=== PATIENT | female | born 1970 | race Caucasian/White ===

== ENCOUNTER 2017-10-06 13:38 | Emergency (ER) | payer MEDICAID ==
[2017-10-06] MEDS: SOD CHLORIDE 0.9% 1,000 ML IV (14:33)
[2017-10-06] MEDS: LORAZEPAM 2 MG INJ IV (14:33)
[2017-10-06 14:34] LABS: ADD MAN DIFF? NO
[2017-10-06 14:38] LABS: ABNORMAL IP MESSAGE 1; BASOPHILS % 0.1 % (0.0-2.0); HEMATOCRIT 23.6 % (37.0-47.0); HEMOGLOBIN 7.5 g/dl (12.0-16.0); LYMPHOCYTES # 0.4 10^3/ul (0.8-2.9); LYMPHOCYTES % 5.6 % (15.0-51.0); MEAN CORPUSCULAR HEMOGLOBIN 26.9 pg (29.0-33.0); MEAN CORPUSCULAR HGB CONC 31.8 g/dl (32.0-37.0); MEAN CORPUSCULAR VOLUME 84.6 fl (82.0-101.0); MEAN PLATELET VOLUME 9.5 fl (7.4-10.4); MONOCYTE # 0.6 10^3/ul (0.3-0.9); MONOCYTES % 8.4 % (0.0-11.0); NEUTROPHIL # 6.1 10^3/ul (1.6-7.5); NEUTROPHILS % 85.2 % (39.0-77.0); NUCLEATED RED BLOOD CELLS% 0.3 /100WBC (0.0-0.0); PLATELET COUNT 115 10^3/UL (140-415); RED BLOOD COUNT 2.79 10^6/ul (4.20-5.40); RED CELL DISTRIBUTION WIDTH 18.6 % (11.5-14.5)
[2017-10-06 14:38] LABS: WHITE BLOOD COUNT 7.2 10^3/ul (4.8-10.8)
[2017-10-06 14:58] LABS: ALANINE AMINOTRANSFERASE 49 IU/L (13-69); ALBUMIN 4.6 g/dl (3.3-4.9); ALBUMIN/GLOBULIN RATIO 1.24; ALKALINE PHOSPHATASE 88 IU/L (42-121); ANION GAP 21 (8-16); ASPARTATE AMINO TRANSFERASE 73 IU/L (15-46); BILIRUBIN,INDIRECT 1.1 mg/dl (0-1.1); BILIRUBIN,TOTAL 1.1 mg/dl (0.2-1.3); BLOOD UREA NITROGEN 4 mg/dl (7-20); CALCIUM 9.5 mg/dl (8.4-10.2); CARBON DIOXIDE 29 mmol/L (21-31); CHLORIDE 86 mmol/L (97-110); CREATININE 0.74 mg/dl (0.44-1.00); GLUCOSE 116 mg/dl (70-220); MAGNESIUM 1.9 mg/dl (1.7-2.5); SODIUM 133 mmol/L (135-144); TOTAL PROTEIN 8.3 g/dl (6.1-8.1)
[2017-10-06 15:00] LABS: ETHANOL < 10.0 mg/dl
[2017-10-06 15:03] LABS: POTASSIUM 2.7 mmol/L (3.5-5.1)
[2017-10-06 15:10] LABS: INR 0.95; PROTIME 12.8 Sec (11.9-14.9)
[2017-10-06 15:27] LABS: PARTIAL THROMBOPLASTIN TIME 21.3 Sec (25.0-35.0)
[2017-10-06 15:29] LABS: CANNABINOIDS Negative (NEGATIVE)
[2017-10-06 15:35] LABS: AMPHETAMINE/METHAMPHETAMINE Negative (NEGATIVE); BARBITURATES Negative (NEGATIVE); BENZODIAZEPINES Negative (NEGATIVE); COCAINE Negative (NEGATIVE); OPIATES Negative (NEGATIVE)
[2017-10-06] MEDS: POTASSIUM CHLORIDE 100 ML IVPB ×2 (16:28→18:15)
[2017-10-06] MEDS: POTASSIUM CHLORIDE (SR) 20 MEQ TAB PO (16:31)
== END 2017-10-06 21:29 | disposition home or self-care (01) ==
LOC: E/R 13:38
DX: F10.239 Alcohol dependence with withdrawal, unspecified (principal); E87.6 Hypokalemia; D64.9 Anemia, unspecified; D69.6 Thrombocytopenia, unspecified
CPT/HCPCS: 36415; 70450; 71045; 80053; 80307; 83735; 84703; 85025; 85610; 85730; 96374; 99285-25

== ENCOUNTER 2017-12-16 23:02 | Inpatient (IN) | payer MEDICAID ==
[2017-12-17 00:45] LABS: ADD MAN DIFF? NO
[2017-12-17 00:49] LABS: WHITE BLOOD COUNT 3.2 10^3/ul (4.8-10.8)
[2017-12-17 00:49] LABS: ABNORMAL IP MESSAGE 1; BASOPHILS % 0.6 % (0.0-2.0); EOSINOPHILS % 0.3 % (0.0-7.0); LYMPHOCYTES # 1.1 10^3/ul (0.8-2.9); LYMPHOCYTES % 34.7 % (15.0-51.0); MEAN CORPUSCULAR HEMOGLOBIN 26.8 pg (29.0-33.0); MEAN CORPUSCULAR HGB CONC 30.5 g/dl (32.0-37.0); MEAN PLATELET VOLUME 8.7 fl (7.4-10.4); MONOCYTE # 0.3 10^3/ul (0.3-0.9); NEUTROPHIL # 1.7 10^3/ul (1.6-7.5); NEUTROPHILS % 54.1 % (39.0-77.0); PLATELET COUNT 164 10^3/UL (140-415); RED CELL DISTRIBUTION WIDTH 16.3 % (11.5-14.5)
[2017-12-17 00:53] LABS: POSITIVE DIFF @See below
[2017-12-17 00:55] LABS: HEMOGLOBIN 6.7 g/dl (12.0-16.0)
[2017-12-17 01:08] LABS: ALANINE AMINOTRANSFERASE 22 IU/L (13-69); ALBUMIN/GLOBULIN RATIO 1.11; ALKALINE PHOSPHATASE 70 IU/L (42-121); ANION GAP 18 (8-16); ASPARTATE AMINO TRANSFERASE 47 IU/L (15-46); BILIRUBIN,INDIRECT 0.2 mg/dl (0-1.1); BILIRUBIN,TOTAL 0.2 mg/dl (0.2-1.3); BLOOD UREA NITROGEN 6 mg/dl (7-20); CALCIUM 8.6 mg/dl (8.4-10.2); CARBON DIOXIDE 29 mmol/L (21-31); CHLORIDE 100 mmol/L (97-110); CREATININE 0.72 mg/dl (0.44-1.00); GLUCOSE 119 mg/dl (70-220); POTASSIUM 3.6 mmol/L (3.5-5.1); SODIUM 143 mmol/L (135-144); TOTAL PROTEIN 7.6 g/dl (6.1-8.1)
[2017-12-17 01:11] LABS: INR 0.86; PROTIME 11.8 Sec (11.9-14.9); PT RATIO 0.9
[2017-12-17] MEDS: HYDROCODONE/APAP (10/325) TAB PO (03:08)
[2017-12-17 04:04] LABS: LIPASE 6058 U/L (23-300)
[2017-12-17] MEDS: SOD CHLORIDE 0.9% 1,000 ML IV ×3 (05:20→18:22)
[2017-12-17] MEDS ORDERED: NACL 0.9% 3 ML SYG IV (05:30)
[2017-12-17] MEDS: LORAZEPAM 2 MG INJ IV ×2 (06:11→13:20)
[2017-12-17 06:56] LABS: ADD MAN DIFF? NO
[2017-12-17 07:03] LABS: WHITE BLOOD COUNT 3.2 10^3/ul (4.8-10.8)
[2017-12-17 07:03] LABS: ABNORMAL IP MESSAGE 1; BASOPHILS % 0.9 % (0.0-2.0); EOSINOPHILS % 0.3 % (0.0-7.0); HEMATOCRIT 21.3 % (37.0-47.0); LYMPHOCYTES # 0.8 10^3/ul (0.8-2.9); LYMPHOCYTES % 25.1 % (15.0-51.0); MEAN CORPUSCULAR HEMOGLOBIN 27.5 pg (29.0-33.0); MEAN CORPUSCULAR HGB CONC 31.5 g/dl (32.0-37.0); MEAN CORPUSCULAR VOLUME 87.3 fl (82.0-101.0); MEAN PLATELET VOLUME 8.9 fl (7.4-10.4); MONOCYTE # 0.4 10^3/ul (0.3-0.9); MONOCYTES % 12.9 % (0.0-11.0); NEUTROPHIL # 1.9 10^3/ul (1.6-7.5); NEUTROPHILS % 60.2 % (39.0-77.0); PLATELET COUNT 117 10^3/UL (140-415); RED BLOOD COUNT 2.44 10^6/ul (4.20-5.40); RED CELL DISTRIBUTION WIDTH 15.8 % (11.5-14.5)
[2017-12-17 07:15] LABS: POSITIVE DIFF @See below
[2017-12-17 07:18] LABS: HEMOGLOBIN 6.7 g/dl (12.0-16.0)
[2017-12-17 07:19] LABS: IRON 35 ug/dl (35-150)
[2017-12-17 07:21] LABS: AMYLASE 262 U/L (11-123)
[2017-12-17 07:29] LABS: % IRON SATURATION 10 % SAT (22-52); TOTAL IRON BINDING CAPACITY 336 ug/dl (241-421)
[2017-12-17 07:36] LABS: LIPASE 3526 U/L (23-300)
[2017-12-17 07:58] LABS: FERRITIN 10.6 ng/ml (6.2-137.0)
[2017-12-17] MEDS: morphine 2 MG INJ IV ×2 (11:26→20:57)
[2017-12-17] MEDS: CHLORDIAZEPOXIDE 25 MG CAP PO ×3 (11:26→23:24)
[2017-12-17] MEDS: THIAMINE 500 MG in SOD CHLORIDE 0.9% 250 ML IV ×2 (12:00→23:29)
[2017-12-17] MEDS ORDERED: THIAMINE 200 MG INJ IV (12:00)
[2017-12-17 12:17] LABS: ADD UMIC YES; UR ASCORBIC ACID NEGATIVE (NEGATIVE); UR BACTERIA FEW /HPF (NONE SEEN); UR BILIRUBIN (Dip) NEGATIVE (NEGATIVE); UR BLOOD (Dip) 3+ mg/dL (NEGATIVE); UR GLUCOSE (Dip) NEGATIVE (NEGATIVE); UR KETONES (Dip) NEGATIVE (NEGATIVE); UR LEUKOCYTE ESTERASE (Dip) NEGATIVE Leu/ul (NEGATIVE); UR NITRITE (Dip) NEGATIVE (NEGATIVE); UR RBC > 182 /HPF (0-5); UR SPECIFIC GRAVITY (Dip) 1.014 (1.003-1.030); UR TOTAL PROTEIN (Dip) 3+ mg/dl (NEGATIVE); UR UROBILINOGEN (Dip) NEGATIVE (NEGATIVE); UR WBC > 182 /HPF (0-5)
[2017-12-17 12:38] LABS: AMPHETAMINE/METHAMPHETAMINE Negative (NEGATIVE); BARBITURATES Negative (NEGATIVE); BENZODIAZEPINES Negative (NEGATIVE); COCAINE Negative (NEGATIVE)
[2017-12-17 12:46] LABS: UR CLARITY BLOODY (CLEAR); UR COLOR RED (YELLOW)
[2017-12-17 12:49] LABS: CANNABINOIDS Positive (NEGATIVE); OPIATES Positive (NEGATIVE)
[2017-12-17] MEDS: MULTIVITAMINS 10 ML, THIAMINE 100 MG, FOLIC ACID 1 MG in SOD CHLORIDE 0.9% 1,000 ML IVPB (14:08)
[2017-12-17] MEDS: ONDANSETRON 4 MG INJ IV (20:50)
[2017-12-18] MEDS: SOD CHLORIDE 0.9% 1,000 ML IV ×4 (01:58→20:54)
[2017-12-18] MEDS: morphine 2 MG INJ IV ×2 (03:47→20:54)
[2017-12-18] MEDS: THIAMINE 500 MG in SOD CHLORIDE 0.9% 250 ML IV ×3 (06:04→20:52)
[2017-12-18] MEDS: CHLORDIAZEPOXIDE 25 MG CAP PO ×4 (06:05→23:53)
[2017-12-18 06:14] LABS: ADD MAN DIFF? NO
[2017-12-18 06:25] LABS: WHITE BLOOD COUNT 3.6 10^3/ul (4.8-10.8)
[2017-12-18 06:25] LABS: ABNORMAL IP MESSAGE 1; BASOPHILS % 0.8 % (0.0-2.0); EOSINOPHILS % 1.1 % (0.0-7.0); HEMATOCRIT 19.2 % (37.0-47.0); LYMPHOCYTES # 0.8 10^3/ul (0.8-2.9); LYMPHOCYTES % 22.8 % (15.0-51.0); MEAN CORPUSCULAR HEMOGLOBIN 26.7 pg (29.0-33.0); MEAN CORPUSCULAR HGB CONC 30.7 g/dl (32.0-37.0); MEAN CORPUSCULAR VOLUME 86.9 fl (82.0-101.0); MEAN PLATELET VOLUME 9.7 fl (7.4-10.4); MONOCYTE # 0.5 10^3/ul (0.3-0.9); MONOCYTES % 12.5 % (0.0-11.0); NEUTROPHIL # 2.2 10^3/ul (1.6-7.5); NEUTROPHILS % 62.2 % (39.0-77.0); PLATELET COUNT 90 10^3/UL (140-415); RED BLOOD COUNT 2.21 10^6/ul (4.20-5.40); RED CELL DISTRIBUTION WIDTH 17.6 % (11.5-14.5)
[2017-12-18 06:51] LABS: AMYLASE 107 U/L (11-123)
[2017-12-18 06:52] LABS: PHOSPHORUS 3.1 mg/dl (2.5-4.9)
[2017-12-18 06:52] LABS: MAGNESIUM 1.7 mg/dl (1.7-2.5)
[2017-12-18 06:57] LABS: HEMOGLOBIN A1C 5.3 % (0-5.9)
[2017-12-18 07:01] LABS: ALANINE AMINOTRANSFERASE 18 IU/L (13-69); ALBUMIN 2.9 g/dl (3.3-4.9); ALBUMIN/GLOBULIN RATIO 1.11; ALKALINE PHOSPHATASE 47 IU/L (42-121); ANION GAP 12 (8-16); ASPARTATE AMINO TRANSFERASE 27 IU/L (15-46); BILIRUBIN,INDIRECT 0.9 mg/dl (0-1.1); BILIRUBIN,TOTAL 0.9 mg/dl (0.2-1.3); BLOOD UREA NITROGEN 4 mg/dl (7-20); CARBON DIOXIDE 23 mmol/L (21-31); CHLORIDE 104 mmol/L (97-110); CREATININE 0.53 mg/dl (0.44-1.00); GLUCOSE 74 mg/dl (70-220); POTASSIUM 3.7 mmol/L (3.5-5.1); SODIUM 135 mmol/L (135-144); TOTAL PROTEIN 5.5 g/dl (6.1-8.1)
[2017-12-18 07:21] LABS: LIPASE 1310 U/L (23-300)
[2017-12-18 07:59] LABS: POSITIVE DIFF @See below
[2017-12-18 08:02] LABS: HEMOGLOBIN 5.9 g/dl (12.0-16.0)
[2017-12-18 09:39] LABS: IMMEDIATE SPIN CROSSMATCH 1 5
[2017-12-18] MEDS ORDERED: LACTATED RINGER'S 1,000 ML IV ×4 (10:47→16:30)
[2017-12-18 11:09] LABS: FREE T4 (FREE THYROXINE) 1.17 ng/dl (0.64-1.79)
[2017-12-18] MEDS ORDERED: ONDANSETRON 4 MG INJ IV (12:00)
[2017-12-18] MEDS ORDERED: MEPERIDINE 25 MG INJ IV (12:00)
[2017-12-18] MEDS ORDERED: FENTAnyl 50 MCG/ML VIAL IV ×2 (12:00)
[2017-12-18] MEDS ORDERED: OXYCODONE/ACETAMINOPHEN (5/325) TAB PO (12:00)
[2017-12-18] MEDS ORDERED: EPHEDrine SULFATE 50 MG/5 ML SYG IV (12:00)
[2017-12-18] MEDS ORDERED: HYDROmorphONE 1 MG/5 ML IV SYRINGE IV ×2 (12:00)
[2017-12-18] MEDS ORDERED: CEFAZOLIN 1 GM INJ (12:02)
[2017-12-18] MEDS ORDERED: PROPOFOL 20 ML (12:02)
[2017-12-18] MEDS ORDERED: MIDAZOLAM 1 MG/ML 2 ML INJ (12:03)
[2017-12-18] MEDS ORDERED: FENTAnyl 50 MCG/ML VIAL ×2 (12:03→12:12)
[2017-12-18] MEDS ORDERED: METOCLOPRAMIDE 10 MG INJ (12:11)
[2017-12-18] MEDS ORDERED: DEXAMETHASONE 4 MG/ML 1 ML INJ (12:11)
[2017-12-18] MEDS ORDERED: ONDANSETRON 4 MG INJ (12:11)
[2017-12-18 14:38] LABS: ADD MAN DIFF? NO
[2017-12-18 14:40] LABS: ABNORMAL IP MESSAGE 1; BASOPHILS % 0.5 % (0.0-2.0); EOSINOPHILS % 0.5 % (0.0-7.0); HEMATOCRIT 23.5 % (37.0-47.0); HEMOGLOBIN 7.5 g/dl (12.0-16.0); LYMPHOCYTES # 0.3 10^3/ul (0.8-2.9); LYMPHOCYTES % 6.7 % (15.0-51.0); MEAN CORPUSCULAR HEMOGLOBIN 28.2 pg (29.0-33.0); MEAN CORPUSCULAR HGB CONC 31.9 g/dl (32.0-37.0); MEAN CORPUSCULAR VOLUME 88.3 fl (82.0-101.0); MONOCYTE # 0.1 10^3/ul (0.3-0.9); MONOCYTES % 2.9 % (0.0-11.0); NEUTROPHIL # 3.7 10^3/ul (1.6-7.5); NEUTROPHILS % 88.4 % (39.0-77.0); PLATELET COUNT 87 10^3/UL (140-415); POSITIVE DIFF @See below; RED BLOOD COUNT 2.66 10^6/ul (4.20-5.40)
[2017-12-18 14:40] LABS: WHITE BLOOD COUNT 4.2 10^3/ul (4.8-10.8)
[2017-12-18] MEDS: ONDANSETRON 4 MG INJ IV (22:11)
[2017-12-18] MEDS: ACETAMINOPHEN 325 MG TAB PO (23:53)
[2017-12-19] MEDS: CALCIUM CARBONATE 500 MG CHEW TAB PO (00:54)
[2017-12-19] MEDS: morphine 2 MG INJ IV ×3 (00:55→23:37)
[2017-12-19] MEDS: LORAZEPAM 2 MG INJ IV (02:42)
[2017-12-19] MEDS: SOD CHLORIDE 0.9% 1,000 ML IV ×4 (03:44→18:25)
[2017-12-19 05:16] LABS: ADD MAN DIFF? NO
[2017-12-19 05:22] LABS: WHITE BLOOD COUNT 5.9 10^3/ul (4.8-10.8)
[2017-12-19 05:22] LABS: BASOPHILS % 0.5 % (0.0-2.0); EOSINOPHILS % 0.3 % (0.0-7.0); HEMATOCRIT 28.1 % (37.0-47.0); LYMPHOCYTES # 0.9 10^3/ul (0.8-2.9); LYMPHOCYTES % 14.7 % (15.0-51.0); MEAN CORPUSCULAR HEMOGLOBIN 27.5 pg (29.0-33.0); MEAN CORPUSCULAR VOLUME 85.9 fl (82.0-101.0); MEAN PLATELET VOLUME 9.8 fl (7.4-10.4); MONOCYTE # 0.7 10^3/ul (0.3-0.9); MONOCYTES % 11.6 % (0.0-11.0); NEUTROPHIL # 4.2 10^3/ul (1.6-7.5); NEUTROPHILS % 71.5 % (39.0-77.0); NUCLEATED RED BLOOD CELLS% 0.5 /100WBC (0.0-0.0); PLATELET COUNT 103 10^3/UL (140-415); RED BLOOD COUNT 3.27 10^6/ul (4.20-5.40); RED CELL DISTRIBUTION WIDTH 15.7 % (11.5-14.5)
[2017-12-19] MEDS: THIAMINE 500 MG in SOD CHLORIDE 0.9% 250 ML IV (05:23)
[2017-12-19 05:46] LABS: ALANINE AMINOTRANSFERASE 18 IU/L (13-69); ALBUMIN 3.1 g/dl (3.3-4.9); ALBUMIN/GLOBULIN RATIO 1.24; ALKALINE PHOSPHATASE 48 IU/L (42-121); ANION GAP 14 (8-16); ASPARTATE AMINO TRANSFERASE 24 IU/L (15-46); BILIRUBIN,INDIRECT 0.8 mg/dl (0-1.1); BILIRUBIN,TOTAL 0.8 mg/dl (0.2-1.3); BLOOD UREA NITROGEN 2 mg/dl (7-20); CALCIUM 8.2 mg/dl (8.4-10.2); CARBON DIOXIDE 19 mmol/L (21-31); CHLORIDE 107 mmol/L (97-110); CREATININE 0.56 mg/dl (0.44-1.00); GLUCOSE 75 mg/dl (70-220); POTASSIUM 3.6 mmol/L (3.5-5.1); SODIUM 136 mmol/L (135-144); TOTAL PROTEIN 5.6 g/dl (6.1-8.1)
[2017-12-19 06:02] LABS: MAGNESIUM 1.7 mg/dl (1.7-2.5)
[2017-12-19] MEDS: CHLORDIAZEPOXIDE 25 MG CAP PO ×2 (07:57→15:30)
[2017-12-20] MEDS: SOD CHLORIDE 0.9% 1,000 ML IV ×3 (00:43→08:29)
[2017-12-20] MEDS: CHLORDIAZEPOXIDE 25 MG CAP PO ×2 (00:44→12:22)
[2017-12-20] MEDS: ONDANSETRON 4 MG INJ IV (00:49)
[2017-12-20 06:04] LABS: ADD MAN DIFF? NO
[2017-12-20 06:13] LABS: BASOPHILS % 0.6 % (0.0-2.0); EOSINOPHILS # 0.1 10^3/ul (0.0-0.5); EOSINOPHILS % 1.8 % (0.0-7.0); HEMATOCRIT 26.8 % (37.0-47.0); HEMOGLOBIN 8.6 g/dl (12.0-16.0); LYMPHOCYTES # 1.5 10^3/ul (0.8-2.9); LYMPHOCYTES % 29.9 % (15.0-51.0); MEAN CORPUSCULAR HEMOGLOBIN 27.6 pg (29.0-33.0); MEAN CORPUSCULAR HGB CONC 32.1 g/dl (32.0-37.0); MEAN CORPUSCULAR VOLUME 85.9 fl (82.0-101.0); MEAN PLATELET VOLUME 9.7 fl (7.4-10.4); MONOCYTE # 0.7 10^3/ul (0.3-0.9); MONOCYTES % 12.9 % (0.0-11.0); NEUTROPHIL # 2.7 10^3/ul (1.6-7.5); NEUTROPHILS % 53.6 % (39.0-77.0); PLATELET COUNT 135 10^3/UL (140-415); RED BLOOD COUNT 3.12 10^6/ul (4.20-5.40); RED CELL DISTRIBUTION WIDTH 15.9 % (11.5-14.5)
[2017-12-20 06:13] LABS: WHITE BLOOD COUNT 5.1 10^3/ul (4.8-10.8)
[2017-12-20 06:37] LABS: ANION GAP 10 (8-16); CALCIUM 8.2 mg/dl (8.4-10.2); CARBON DIOXIDE 21 mmol/L (21-31); CHLORIDE 108 mmol/L (97-110); GLUCOSE 90 mg/dl (70-220); MAGNESIUM 1.6 mg/dl (1.7-2.5); PHOSPHORUS 2.4 mg/dl (2.5-4.9); SODIUM 136 mmol/L (135-144)
[2017-12-20 06:40] LABS: BLOOD UREA NITROGEN < 2 mg/dl (7-20)
[2017-12-20 06:42] LABS: POTASSIUM 2.8 mmol/L (3.5-5.1)
[2017-12-20] MEDS: POTASSIUM CHLORIDE (SR) 20 MEQ TAB PO ×2 (07:00→15:10)
[2017-12-20] MEDS: MAGNESIUM SULFATE 3 GM in DEXTROSE 5% 100 ML IVPB (08:28)
[2017-12-20 11:58] LABS: ANION GAP 11 (8-16); CARBON DIOXIDE 21 mmol/L (21-31); CHLORIDE 108 mmol/L (97-110); CREATININE 0.48 mg/dl (0.44-1.00); GLUCOSE 117 mg/dl (70-220); MAGNESIUM 2.3 mg/dl (1.7-2.5); POTASSIUM 3.3 mmol/L (3.5-5.1); SODIUM 137 mmol/L (135-144)
[2017-12-20 12:03] LABS: BLOOD UREA NITROGEN < 2 mg/dl (7-20)
[2017-12-20] MEDS: LORAZEPAM 2 MG INJ IV (20:42)
[2017-12-20] MEDS: morphine 2 MG INJ IV (22:12)
[2017-12-21] MEDS: CHLORDIAZEPOXIDE 25 MG CAP PO (00:03)
[2017-12-21 06:05] LABS: ADD MAN DIFF? NO
[2017-12-21 06:10] LABS: BASOPHILS % 0.5 % (0.0-2.0); EOSINOPHILS # 0.1 10^3/ul (0.0-0.5); EOSINOPHILS % 1.8 % (0.0-7.0); HEMATOCRIT 28.3 % (37.0-47.0); LYMPHOCYTES # 1.3 10^3/ul (0.8-2.9); LYMPHOCYTES % 28.7 % (15.0-51.0); MEAN CORPUSCULAR HEMOGLOBIN 27.7 pg (29.0-33.0); MEAN CORPUSCULAR HGB CONC 31.8 g/dl (32.0-37.0); MEAN CORPUSCULAR VOLUME 87.1 fl (82.0-101.0); MEAN PLATELET VOLUME 9.7 fl (7.4-10.4); MONOCYTE # 0.6 10^3/ul (0.3-0.9); MONOCYTES % 13.9 % (0.0-11.0); NEUTROPHIL # 2.4 10^3/ul (1.6-7.5); NEUTROPHILS % 54.2 % (39.0-77.0); PLATELET COUNT 143 10^3/UL (140-415); RED BLOOD COUNT 3.25 10^6/ul (4.20-5.40); RED CELL DISTRIBUTION WIDTH 16.9 % (11.5-14.5)
[2017-12-21 06:10] LABS: WHITE BLOOD COUNT 4.4 10^3/ul (4.8-10.8)
[2017-12-21 07:12] LABS: ANION GAP 10 (8-16); BLOOD UREA NITROGEN 3 mg/dl (7-20); CALCIUM 8.6 mg/dl (8.4-10.2); CARBON DIOXIDE 25 mmol/L (21-31); CHLORIDE 107 mmol/L (97-110); CREATININE 0.57 mg/dl (0.44-1.00); GLUCOSE 94 mg/dl (70-220); POTASSIUM 3.7 mmol/L (3.5-5.1); SODIUM 138 mmol/L (135-144)
[2017-12-21 07:24] LABS: MAGNESIUM 1.8 mg/dl (1.7-2.5)
[2017-12-21 07:24] LABS: PHOSPHORUS 3.1 mg/dl (2.5-4.9)
[2017-12-21] MEDS: SOD CHLORIDE 0.9% 250 ML IV* (08:50)
[2017-12-21] MEDS: MULTIVITAMINS 10 ML, THIAMINE 100 MG, FOLIC ACID 1 MG in SOD CHLORIDE 0.9% 1,000 ML IVPB (08:56)
[2017-12-21] MEDS: LORAZEPAM 2 MG INJ IV (09:12)
[2017-12-21] MEDS ORDERED: CHLORDIAZEPOXIDE 25 MG CAP PO (21:00)
[2017-12-22] MEDS ORDERED: CHLORDIAZEPOXIDE 25 MG CAP PO (21:00)
== END 2017-12-21 17:30 | disposition home or self-care (01) | DRG 744 ==
LOC: E/R 23:02 → PP2 12-20 22:05
PROC: 0UDB8ZX Extraction of Endometrium, Via Natural or Artificial Opening Endoscopic, Diagnostic (ICD-10-PCS; principal; 2017-12-18 11:56)
PROC: 30233N1 Transfusion of Nonautologous Red Blood Cells into Peripheral Vein, Percutaneous Approach (ICD-10-PCS; 2017-12-18 11:56)
PROC: 30233N1 Transfusion of Nonautologous Red Blood Cells into Peripheral Vein, Percutaneous Approach (ICD-10-PCS; 2017-12-18 11:56)
DX: D25.9 Leiomyoma of uterus, unspecified (principal); K85.90 Acute pancreatitis without necrosis or infection, unspecified; F10.239 Alcohol dependence with withdrawal, unspecified; D61.818 Other pancytopenia; D69.59 Other secondary thrombocytopenia; D50.0 Iron deficiency anemia secondary to blood loss (chronic); F11.10 Opioid abuse, uncomplicated; N92.0 Excessive and frequent menstruation with regular cycle; N93.8 Other specified abnormal uterine and vaginal bleeding; F12.10 Cannabis abuse, uncomplicated; Y90.7 Blood alcohol level of 200-239 mg/100 ml
CPT/HCPCS: 36415; 36430; 74176; 76830; 76856; 80048; 80053; 80307; 81001; 82150; 82728; 83036; 83540; 83690; 83735; 84100; 84439; 84443; 84702; 84703; 85025; 85610; 85730; 86644; 86850; 86900; 86901; 86920; 88305; 99285-25

== ENCOUNTER → 2018-11-11 | Emergency (ER) | payer OTHER, MEDICAID | END | disposition home or self-care (01) | LOC: FTE 02:14 | DX: R07.81 Pleurodynia (principal) | CPT/HCPCS: 81025; 99283 ==